=== PATIENT | male | born 1965 | race Caucasian/White ===

== ENCOUNTER 2017-04-20 08:13 | Day surgery (SDC) | payer BC ==
[2017-04-20] MEDS ORDERED: FENTANYL 100MCG/2ML SOL ONE (08:56)
[2017-04-20 09:27] VITALS: RESP 16
[2017-04-20 09:33] VITALS: PULSE 63
[2017-04-20 09:53] VITALS: BP 94/62; TEMP 97.6; O2SAT 96
== END 2017-04-20 10:15 | disposition home or self-care (01) ==
LOC: SURG 08:13
PROVIDERS: ATTEND Surgery
DX: Z12.11 Encounter for screening for malignant neoplasm of colon (principal)
CPT/HCPCS: 45378; J3010; J2001; J2704